=== PATIENT | female | born 1970 | race Two or more races ===

== ENCOUNTER 2019-09-15 07:38 | Emergency (ER) | payer MEDICAID ==
[~2019-09-15] VITALS: Ht 167.6 cm; Wt 82.1 kg
[2019-09-15 07:45] VITALS: Ht 167.6 cm; Wt 82.1 kg
[2019-09-15 08:38] LABS: microscopic required? NO
[2019-09-15 09:25] LABS: BASOPHIL % 0.4 % (0-2); PLATELET COUNT 224 x10^3mcL (130-400); RED CELL DISTRIBUTION WIDTH 16.6 % (11.5-14.5)
[2019-09-15 09:28] LABS: UA SPECIFIC GRAVITY 1.015 (1.005-1.035); urine erythrocyte NEGATIVE (NEGATIVE)
[2019-09-15 09:32] LABS: CALCIUM 8.8 mg/dL (8.5-10.1); CARBON DIOXIDE 27.1 mmol/L (21-32); CHLORIDE SERUM 106 mmol/L (98-107); CREATININE SERUM 0.7 mg/dL (0.6-1.0); GFR1 > 60 mL/min; GLUCOSE SERUM 106 mg/dL (74-106); POTASSIUM SERUM 3.7 mmol/L (3.5-5.1); SODIUM SERUM 143 mmol/L (136-145)
[2019-09-15 09:44] LABS: ALBUMIN 3.6 g/dL (3.4-5.0); ALKALINE PHOSPHATASE 104 U/L (46-116); ALT/SGPT 17 U/L (14-59); AST/SGOT 19 U/L (15-37); BILIRUBIN TOTAL 0.54 mg/dL (0.20-1.00); CHOLESTEROL 200 mg/dL (<200); HDL CHOLESTEROL 48 mg/dL (40-60); LIPASE 189 IU/L (73-393); T4(THYROXINE) 7.9 ug/dL (4.7-13.3); TOTAL PROTEIN, SERUM 7.5 g/dL (6.4-8.2)
[2019-09-15 11:51] LABS: AMPHETAMINE QUAL UR NONE DETECTED (See below)
[2019-09-15 14:43] VITALS: BP 135/70
== END 2019-09-15 14:43 | disposition home or self-care (01) ==
LOC: ED 07:38
PROVIDERS: Emergency Medicine
DX: R07.89 Other chest pain (principal); R09.81 Nasal congestion; R05 Cough
CPT/HCPCS: 83880; 85378; J7030; Q0092; Q9967